=== PATIENT | male | born 1980 ===

== ENCOUNTER 2022-06-23 10:19 | Observation (INO) ==
[~2022-06-23 10:19] MED LIST: Buffered Lidocaine 1% SYRIN 1 ml INTRADERM ONE; Lactated Ringers 1000 ml BAG 1,000 ML IV SCH
[2022-06-23] MEDS ORDERED: Clindamycin 900 MG/D5W BAG 900 MG/50 ML BAG IVPB ONE (10:47)
[2022-06-23] MEDS ORDERED: Buffered Lidocaine 1% SYRIN 1 ml INTRADERM ONE (10:48)
[2022-06-23] MEDS ORDERED: Propofol 10 MG/ML 20 ML BTL ONE ×2 (11:37→13:12)
[2022-06-23] MEDS ORDERED: Midazolam 2 mg/2 ml VIAL 1 mg/ml 2 ml VIAL (2 mg) ONE (11:37)
[2022-06-23] MEDS ORDERED: fentaNYL 250 mcg/5 ml 50 MCG/ML 5 ml VIAL (250 MCG) ONE (11:37)
[2022-06-23] MEDS ORDERED: Lidocaine 2% PF 5 ML VIAL ONE (11:37)
[2022-06-23] MEDS ORDERED: Phenylephrine 40 mcg/mL 10mL (400mcg) SYRINGE ONE (13:19)
[2022-06-23] MEDS ORDERED: Ondansetron 4 mg VIAL 2 MG/ML 2 ml VIAL ONE (13:25)
[2022-06-23] MEDS ORDERED: Metoclopramide 5 MG/ML VIAL (10 mg) ONE (13:25)
[2022-06-23] MEDS ORDERED: Dexamethasone IV 4 MG/ML VIAL 1 ml VIAL ONE (13:25)
[2022-06-23] MEDS ORDERED: Ondansetron 4 mg VIAL 2 MG/ML 2 ml VIAL IV PRN (14:20)
[2022-06-23] MEDS ORDERED: Magnesium Hydroxide LIQ 30 ML UDC PO PRN (14:20)
[2022-06-23] MEDS ORDERED: Lactulose 30 ml UDC PO PRN (14:20)
[2022-06-23] MEDS ORDERED: Ondansetron ODT 4 mg TAB 4 MG TAB PO PRN (14:20)
[2022-06-23] MEDS ORDERED: HYDROmorphone 1 MG/1 ML SYRINGE IV PRN (14:28)
[2022-06-23] MEDS ORDERED: Naloxone 0.4 mg VIAL 0.4 mg/ml 1 ml VIAL IV PRN (14:28)
[2022-06-23] MEDS ORDERED: oxyCODONE/Acetamin 5/325 mg TAB PO PRN (14:28)
[2022-06-23] MEDS ORDERED: Acetaminophen IV 1 GM/100ML 100 ML IV ONE (14:28)
[2022-06-23] MEDS ORDERED: Vancomycin 1,000 MG in NS 0.9% 250 ml 250 ML IVPB SCH (14:43)
[2022-06-23] MEDS ORDERED: Lactated Ringers 1000 ml BAG 1,000 ML IV SCH (15:00)
[2022-06-23] MEDS ORDERED: Vancomycin per Pharmacy 1 EA NOTE FOLLOW UP PRN (15:55)
[2022-06-23] MEDS ORDERED: Vancomycin 1,750 MG in NS 0.9% 500 ml BAG 500 ML IVPB ONE (16:30)
[2022-06-23 18:32] LABS: eGFR CKD-EPI 80.3 (>60)
[2022-06-23] MEDS: Magnesium Hydroxide LIQ 30 ML UDC PO SCH (20:56)
[2022-06-24] MEDS: Calcium Carb (TUMS) 500 mg CHEW TAB PO PRN ×2 (02:37→14:24)
[2022-06-24] MEDS ORDERED: Vancomycin 1,500 MG in NS 0.9% 250 ml 250 ML IVPB SCH (05:00)
[2022-06-24 05:20] LABS: Hematocrit 41 % (42-52); Hemoglobin 13.5 g/dL (14.0-18.0); Mean Platelet Volume 8.7 fL (7.4-10.4); Platelet Count 254 10^3/uL (150-450)
[2022-06-24 05:40] LABS: Calcium 9.1 mg/dL (8.6-10.3); Potassium 4.8 mmol/L (3.5-5.0); eGFR CKD-EPI 95.8 (>60)
[2022-06-24] MEDS: Magnesium Hydroxide LIQ 30 ML UDC PO SCH ×2 (08:26→21:29)
[2022-06-24] MEDS ORDERED: Alogliptin 25 mg TAB (NF) PO SCH (09:00)
[2022-06-24] MEDS: Vitamin THERAPEUTIC TAB PO SCH (09:42)
[2022-06-24] MEDS ORDERED: Calcium Carb (TUMS) 500 mg CHEW TAB ONE (14:22)
[2022-06-24] MEDS ORDERED: Calcium Carb (TUMS) 500 mg CHEW TAB PO PRN (14:40)
[2022-06-24] MEDS: Vancomycin 1,500 MG in NS 0.9% 250 ml 250 ML IVPB SCH (17:55)
[2022-06-25 05:45] LABS: Hematocrit 44 % (42-52); Hemoglobin 14.2 g/dL (14.0-18.0); Mean Platelet Volume 9.3 fL (7.4-10.4); Platelet Count 259 10^3/uL (150-450)
[2022-06-25] MEDS ORDERED: Vancomycin Trough Check NOTE FOLLOW UP ONE (06:00)
[2022-06-25 06:25] LABS: Vancomycin Trough 12.5 mcg/mL; eGFR CKD-EPI 84.6 (>60)
[2022-06-25] MEDS: Vancomycin 1,500 MG in NS 0.9% 250 ml 250 ML IVPB SCH (06:31)
[2022-06-25] MEDS: Magnesium Hydroxide LIQ 30 ML UDC PO SCH (07:20)
[2022-06-25] MEDS: Vitamin THERAPEUTIC TAB PO SCH (09:06)
[2022-06-25 11:38] VITALS: BP 127/86
== END 2022-06-25 12:20 | disposition home or self-care (01) ==
LOC: OR 10:19 → SSU 10:19
PROVIDERS: ADMIT Orthopaedic Surgery; ATTEND Orthopaedic Surgery